=== PATIENT | female | born 1950 | race Caucasian/White ===

== ENCOUNTER 2019-07-18 01:29 | Inpatient (IN) | payer MEDICARE ==
[~2019-07-18] VITALS: Ht 152.4 cm; Wt 59.0 kg
--- NOTE | 2019-07-18 01:45 | NUR ---
GPS ADMISSION NOTE, RECEIVED PATIENT FROM [facility] / [place]. PATIENT ARRIVED ON THIS UNIT AT 0145 VIA STRETCHER WITH 2 EMT ESCORTS. PATIENT ADMITTED ON A 5150 HOLD FOR DTS AND GD. PER HOLD PATIENT REPORTS HAVING ANXIETY, PARANOIA, AND FEAR. PATIENT THINKS SHE IS BEING EXPOSED TO TOXIC FUMES AND IS BEING POISONED. PATIENTS STATES, " I HAVE NOT EATEN OR SLEPT IN DAYS ". PATIENT UNABLE TO VERBALIZE A PLAN FOR SELF CARE IF DISCHARGED FROM E.R. TODAY. THE 5150 WAS REVIEWED AND THE DOCUMENTATION IN THE 5150 HOLD APPEARS TO REFLECT THE PRESENTATION OF THE PATIENT. UPON FACE TO FACE ASSESSMENT PATIENT IS NOTED TO BEING DEPRESSED, ANXIOUS, DISHEVELED, DISORGANIZED, PARANOID, COOPERATIVE, AND NEEDS REDIRECTION. PATIENT IS CURRENTLY LYING IN BED AWAKE, HAS COMPLAINTS OF BILATERAL PAIN LEG AT 7 OUT OF 10 ON THE PAIN SCALE. PATIENT IS TAKING ORAL PAIN MEDICATION FOR THIS PAIN. PATIENT IS DISPLAYING NO S/S OF APPARENT DISTRESS. PATIENT BREATHING IS UNLABORED WITH EQUAL RISE AND FALL OF THE CHEST. PATIENT IS ALERT AND ORIENTATED X 1-2 ON ROOM AIR. PATIENT ASSISTED WITH TURING AND REPOSITIONING Q2HR AND PRN FOR COMFORT AND CIRCULATION. PATIENT HAS NO NEEDS AT THIS TIME. PATIENT DENIES SUICIDE IDEATIONS AND HOMICIDAL IDEATIONS AT THIS TIME. PATIENT REFUSED TO SIGNS ANY PAPER WORK AND IS CONFUSED AND IN TO MUCH PAIN TO DO SO. PATIENT ADVISED OF HER HOLD AND PATIENT RIGHTS BOOKLET GIVEN. PATIENT IS UNDER THE PSYCHIATRIC CARE OF DR. SANDY AND THE MEDICAL CARE OF DR ELIAS. PATIENT BELONGINGS WERE INVENTORIED AND CHECKED FOR CONTRABAND. ALL CONTRABAND REMOVED AND STORED IN PATIENT HALLWAY LOCKER. PATIENT ADVANCED DIRECTIVES PREFERENCE, IMMUNIZATIONS QUESTIONER, NECESSARY PAPERWORK COMPLETED. PATIENT COMPLETED SKIN ASSESSMENT. PATIENT ORIENTATED TO ROOM, FLOOR, AND STAFF WITH ALL QUESTIONS ANSWERED. PATIENT EDUCATED ON THE USE OF THE CALL LONG. PATIENT BED SIDE RAILS ARE UP X 2 FOR SAFETY. PATIENT BED IS LOCKED, LOW AND I WILL CONTINUE TO MONITOR THIS PATIENT Q 15 MIN WITH THE HELP OF STAFF TO MAINTAIN SAFETY.
[2019-07-18] MEDS ORDERED: MAG HYDROX/AL HYDROX/SIMETH 30 ML UDC PO PRN (03:00)
[2019-07-18] MEDS ORDERED: TEMAZEPAM 7.5 MG CAPSULE PO PRN (03:00)
[2019-07-18] MEDS ORDERED: MAGNESIUM HYDROXIDE 30 ML UDC PO PRN (03:00)
[2019-07-18] MEDS ORDERED: ACETAMINOPHEN 325 MG TABLET PO PRN (03:00)
[2019-07-18] MEDS ORDERED: LOSA50TA39 PO (03:28)
[2019-07-18] MEDS ORDERED: BLOOD SUGAR DIAGNOSTIC 1 EACH STRIP IN ONE (03:30)
[2019-07-18] MEDS ORDERED: ALPR1TAB2 PO (03:31)
[2019-07-18] MEDS ORDERED: VENL75TA4 PO (03:31)
[2019-07-18] MEDS ORDERED: PRAM0.258 PO (04:13)
[2019-07-18] MEDS ORDERED: DULO20CA19 PO (04:13)
[2019-07-18] MEDS ORDERED: HYDR-3972 PO (04:15)
[2019-07-18] MEDS ORDERED: DIPH50CA38 PO (04:18)
[2019-07-18] MEDS ORDERED: DIPH50CA37 PO (04:19)
[2019-07-18] MEDS: HYDROCODONE/APAP 5/325MG 1 EACH TABLET PO PRN ×3 (04:28→14:51)
--- NOTE | 2019-07-18 05:22 | NUR ---
Patient complain of leg pain 03/[address] diego and received the order for [place] 5/325 1 tab every 4 hrs and PRN for pain. and administered to the patient Reassess the pain after 30 mins pain was 2/10 all needs met. will continues to monitor the patient for safety and fall.
[2019-07-18 06:40] LABS: BASOPHILS # (AUTO) 0.1 /CMM (0.0-0.2); BASOPHILS % (AUTO) 1.3 % (0.0-2.0); EOSINOPHILS % (AUTO) 3.4 % (0.0-6.0); HEMATOCRIT 35 % (33-45); HEMOGLOBIN 11.1 g/dL (11.5-14.8); LYMPHOCYTES # (AUTO) 1.8 /CMM (0.8-4.8); LYMPHOCYTES % (AUTO) 33.7 % (20.0-44.0); MEAN CORPUSCULAR HGB CONC 32 g/dl (31.0-36.0); MEAN CORPUSCULAR VOLUME 73 fL (82-100); MONOCYTES # (AUTO) 0.5 /CMM (0.1-1.30); NEUTROPHILS # (AUTO) 2.8 /CMM (1.8-8.9); NEUTROPHILS % (AUTO) 51.6 % (43.0-81.0); PLATELET COUNT (AUTO) 218 /CMM (150-450); RED BLOOD CELL COUNT(AUTO) 4.77 MIL/uL (4.0-5.2); WHITE BLOOD COUNT (AUTO) 5.3 K/uL (4.3-11.0)
[2019-07-18 07:24] LABS: CALCIUM, SERUM 8.9 mg/dL (8.5-10.1); POTASSIUM 4.5 mmol/L (3.5-5.1)
[2019-07-18 08:00] VITALS: BP 144/72
--- NOTE | 2019-07-18 09:50 | NUR ---
PSYCHIATRIST CONTACT: SW contacted psychiatrist Dr. Boo ([phone]) and left a voicemail informing him pt is currently on a 5150 hold at [facility] and pt wishes to be transferred to [facility].
--- NOTE | 2019-07-18 09:53 | NUR ---
LATERAL TRANSFER: Pt is requesting she be transferred to [facility] Address: [address] [place] [address] under the treatment of psychiatrist Dr. Boo ([phone]). SW spoke with intake for a lateral transfer and SW will fax clinicals to for possible transfer. As of now per intake there are no beds available.
[2019-07-18] MEDS: LORAZEPAM 0.5 MG TABLET PO PRN ×2 (10:00→17:33)
--- NOTE | 2019-07-18 10:03 | NUR ---
RN NOTE: PT C/O BILAT LOWER LEG PAIN OF 8/10. REQUESTING NORCO PRN. PT C/O INCREASED ANXIETY AND RESTLESS LEG SYNDROME. MEDICATED WITH ATIVAN 0.5 MG PO PRN.
[2019-07-18] MEDS ORDERED: CHOL4PAC2 PO (10:08)
[2019-07-18] MEDS ORDERED: IPRA42SP (10:08)
[2019-07-18] MEDS ORDERED: POLY17PO4 PO (10:08)
[2019-07-18] MEDS ORDERED: LIDO30CR47 TP (10:08)
[2019-07-18] MEDS ORDERED: GABA-534 PO (10:08)
--- NOTE | 2019-07-18 10:47 | NUR ---
INITIAL DISCHARGE PLAN: Per pt she wishes to be transferred to [facility] Address: [address] [place] [address] for continued psychiatric treatment. KAYLEY may need SNF placement as she does not want to return home [address] [id number] . KAYLEY will help from a safe and proper discharge in collaboration with .
--- NOTE | 2019-07-18 10:53 | NUR ---
PSYCHIATRIST CONTACT: KAYLEY received a call from psychiatrist Dr. Boo ([phone]) stating he wishes for pt to be transferred to [facility] for continued psychiatric treatment. KAYLEY informed him that SW will fax clinicals once clinical notes are available for a possible lateral transfer contingent on bed availability. Dr. Boo agreed.
--- NOTE | 2019-07-18 11:03 | NUR ---
FAMILY CONTACT: SW contacted pts daughter Isabel [phone] and was unable to leave a voicemail as the phone kept ringing and had not voicemail option.
[2019-07-18] MEDS: risperiDONE 0.25 MG TABLET PO SCH ×2 (11:09→16:40)
--- NOTE | 2019-07-18 14:51 | NUR ---
RN NOTE: PT C/O BILATERAL LOWER LEG PAIN, 02/04. REQUESTING NORCO. NORCO GIVEN PO PRN
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
[2019-07-18 16:00] VITALS: BP 157/75
--- NOTE | 2019-07-18 16:30 | NUR ---
RN NOTE: DR. WOODARD ASSESSED PT THIS AM. NO NEW ORDERS. DR. WOODARD NOTIFIED AT 16:30 AND STATED WILL DO MEDICATION RECONCILIATION.
--- NOTE | 2019-07-18 17:34 | NUR ---
RN NOTE: PT C/O ANXIETY AND INDIGESTION. REQUESTING ATIVAN PO. MEDICATED WITH ATIVAN PO PRN AND MAALOX.
[2019-07-18] MEDS ORDERED: HYDROCODONE/APAP 5/325MG 1 EACH TABLET PO PRN (19:00)
[2019-07-18] MEDS ORDERED: GABAPENTIN 300 MG CAPSULE PO PRN (19:00)
[2019-07-18] MEDS: IPRATROPIUM NEB FS 0.5 MG/2.5 ML AMPUL.NEB NEB SCH (19:30)
--- NOTE | 2019-07-18 19:39 | NUR ---
GPS RN OPENING NOTES: PATIENT RESTING IN HER BED, EASILY AGITED ,FORGETFUL CONFUSED DISHELVED ,PARANOID DENIES SI/HI/AVH AT THIS TIME,ENCOURAGED FOR VERBALIZATION OF FEELINGS, SAFETY PRECAUTIONS IMPLEMENTED. INTERACT WITH ENGAGED, NEEDS FREQUENTLY REDIRECTIONS ,WILL CONTINUE TO MONITOR Q15MIN ROUNDS FOR SAFETY AND BEHAVIOR.
[2019-07-18 20:55] VITALS: BP 138/73
[2019-07-18] MEDS: PRAMIPEXOLE DI-HCL 0.25 MG TABLET PO SCH (21:39)
[2019-07-18] MEDS: BENZTROPINE MESYLATE (1 MG) 1 MG TABLET PO SCH (21:39)
--- NOTE | 2019-07-19 06:11 | NUR ---
RN NOTES: PLACED CALLED TO [facility] SPOKE WITH LIVIA CAVANAUGH # [phone] REGARDING ABOUT ADMISSION
--- NOTE | 2019-07-19 06:48 | NUR ---
GPS RN CLOSING NOTE: PATIENT IN BED ASLEEP,COMFORTABLY, NO ACUTE DISTRESS NOTED. DENIES PAIN OR DISCOMFORT. NO AGITATION NOTED. NO BEHAVIOR PROBLEMS NOTED ,DENIES SI/HI/AVH AT THIS TIME. SAFETY PRECAUTIONS IMPLEMENTED.ALL NEEDS ATTENDED AND ANTICIPATED, ENCOURGED FOR VERBALIZED ANY FEELING ,BED ALARM ON AND IN LOCKED POSITION. WILL CONTINUE TO MONITOR FOR PT'S SAFETY.
[2019-07-19 08:00] VITALS: BP 141/82
[2019-07-19] MEDS: POLYETHYLENE GLYCOL 3350 17 GM POWD.PACK PO SCH ×2 (08:13→08:51)
[2019-07-19] MEDS: risperiDONE 0.25 MG TABLET PO SCH ×2 (08:13→17:12)
[2019-07-19] MEDS: LOSARTAN POTASSIUM 50 MG TABLET PO SCH (08:13)
[2019-07-19] MEDS: VENLAFAXINE XR 75 MG CAP.SR.24H PO SCH (08:13)
[2019-07-19] MEDS: IPRATROPIUM NEB FS 0.5 MG/2.5 ML AMPUL.NEB NEB SCH ×2 (08:30→19:40)
[2019-07-19] MEDS ORDERED: CHOLESTYRAMINE PO SCH (09:00)
[2019-07-19] MEDS ORDERED: SUCROSE PO SCH (09:00)
--- NOTE | 2019-07-19 10:10 | NUR ---
GPS RN OPENING NOTE RECEIVED PT LYING IN BED. PATIENT IS UNSTEADY ON HER FEET AND NEEDS TO USE WALKER TO AMBULATE. INDEPENDENT WITH ADLS. PERFORMED AM CARE. PATIENT DENIES PAIN THIS MORNING. EDUCATED ON PRN MEDICATIONS FOR PAIN R/T HER FIBROMYALGIA. NO ACUTE DISTRESS NOTED. PT DENIES SI/HI/AH/VH AT PRESENT TIME. WILL CONT TO MONITOR PT Q15 FOR MOOD, SAFETY AND BEHAVIOR.
[2019-07-19] MEDS: HYDROCODONE/APAP 5/325MG 1 EACH TABLET PO PRN ×2 (13:09→21:29)
[2019-07-19 16:00] VITALS: BP 108/57
[2019-07-19] MEDS: PRAMIPEXOLE DI-HCL 0.25 MG TABLET PO SCH (21:03)
[2019-07-19] MEDS: BENZTROPINE MESYLATE (1 MG) 1 MG TABLET PO SCH (21:04)
[2019-07-19 21:14] VITALS: BP 126/75
[2019-07-19 21:27] VITALS: BP 136/73
--- NOTE | 2019-07-19 21:30 | NUR ---
GPS RN NOTES: C/O OF FEET PAIN PT C/O OF BILATERAL FEET PAIN. PT STATED, "CAN I HAVE MEDICATION TO HELP WITH MY FEET PAIN?" CHECKED VITALS WNL. NO S/S OF RESP DISTRESS. BREATHING EVEN AND UNLABORED.. OFFERED NARCO 1TAB PO PRN ORDERED. PT AGREED AND TOLERATED MEDICATION WELL. CONTINUE TO MONITOR.
[2019-07-20 08:00] VITALS: BP 141/69
[2019-07-20] MEDS: risperiDONE 0.25 MG TABLET PO SCH ×2 (08:02→16:09)
[2019-07-20] MEDS: POLYETHYLENE GLYCOL 3350 17 GM POWD.PACK PO SCH (08:02)
[2019-07-20] MEDS: VENLAFAXINE XR 75 MG CAP.SR.24H PO SCH (08:02)
[2019-07-20] MEDS: LOSARTAN POTASSIUM 50 MG TABLET PO SCH (08:06)
--- NOTE | 2019-07-20 09:00 | NUR ---
RN NOTE - RECEIVED PT LYING IN BED. NO ACUTE DISTRESS NOTED, VSS, AFEBRILE. PT A+OX3. ABLE TO MAKE NEEDS KNOWN. PT IS ISOLATIVE AND WITHDRAWN. FLAT AFFECT. PT DENIES SI/HI/AH/VH AT PRESENT TIME. PT IS COMPLIANT WITH MEDICATION ADMINISTRATION AND PLAN OF CARE. WILL CONT TO MONITOR PT PER GPS PROTOCOL.
[2019-07-20] MEDS: IPRATROPIUM NEB FS 0.5 MG/2.5 ML AMPUL.NEB NEB SCH ×2 (09:36→19:30)
[2019-07-20] MEDS: HYDROCODONE/APAP 5/325MG 1 EACH TABLET PO PRN ×2 (13:35→22:06)
--- NOTE | 2019-07-20 13:36 | NUR ---
RN NOTE: PT C/O 01/04 LEFT LOWER LEG PAIN. REQUESTING NORCO PRN. MEDICATED WITH NORCO 5MG/325MG PO PRN FOR PAIN.
[2019-07-20 16:15] VITALS: BP 127/65
[2019-07-20 20:16] VITALS: BP 148/75
[2019-07-20] MEDS: BENZTROPINE MESYLATE (1 MG) 1 MG TABLET PO SCH (21:06)
[2019-07-20] MEDS: PRAMIPEXOLE DI-HCL 0.25 MG TABLET PO SCH (21:06)
[2019-07-21] MEDS: IPRATROPIUM NEB FS 0.5 MG/2.5 ML AMPUL.NEB NEB SCH (07:30)
[2019-07-21 08:00] VITALS: BP 139/71
[2019-07-21 09:01] VITALS: BP 139/71
[2019-07-21] MEDS: VENLAFAXINE XR 75 MG CAP.SR.24H PO SCH (09:01)
[2019-07-21] MEDS: LOSARTAN POTASSIUM 50 MG TABLET PO SCH (09:01)
[2019-07-21] MEDS: POLYETHYLENE GLYCOL 3350 17 GM POWD.PACK PO SCH (09:01)
[2019-07-21] MEDS: risperiDONE 0.25 MG TABLET PO SCH (09:01)
--- NOTE | 2019-07-21 11:36 | NUR ---
REFERRAL: KAYLEY faxed lateral transfer referral to [facility] Address: [address] [place], [place] [address] for review.
--- NOTE | 2019-07-21 12:55 | NUR ---
LATERAL TRANSFER: SW received a call from Verónica metal control coordinator at [facility] Address: [address] [place] [address] Boo has accepted pt and can be transferred on this present day.
--- NOTE | 2019-07-21 13:13 | NUR ---
DISCHARGE NOTE: Pt is being laterally transferred via ambulance between 2:00-3:00pm (arranged by [facility]) to [facility] Address: [address] [place] [address] . Pt will be under the psychiatric treatment of Dr. Meng Boo. Pts mood is depressed/dysphoric with angry affect. Pt has persecutory delusions and is angry at her roommate for not talking to her.
--- NOTE | 2019-07-21 14:06 | NUR ---
RN-CO: Dr Santos seen and examined the patient. She ordered a lateral transfer to [facility] in [address] [facility] , [place] [address] tel [phone]. Dr Stevenson (internis) made aware and ordered to continue her medications. Patient is calm and cooperative while she is here, denied pain and discomforts. She stated that she is not feeling hopeless because she has a grand daughter to take care of. More so denies suicidal and homicidal ideation. She stated that she doesn't have auditory and visual hallucination. Report was given to the RN in [facility]. All belongings and valuables will be given back to the patient. Daughter Brennon Colin made aware. [phone]. [facility] will be picking up the patient. Addendum: 07/21/19 at 1445 by TAHIRA ALVAREZ RN RN-CO: HOWEVER, patient is guarded and easily irritated./
--- NOTE | 2019-07-21 15:56 | NUR ---
RN-CO: Ambulance picked up the patient with all her valuables given and approved by her.
== END 2019-07-21 15:45 | DRG 885 ==
LOC: GPS 01:29
PROVIDERS: ADMIT Psychiatry & Neurology Psychosomatic Medicine; ATTEND Internal Medicine
DX: F31.4 Bipolar disorder, current episode depressed, severe, without psychotic features (principal); F41.9 Anxiety disorder, unspecified; F03.90 Unspecified dementia, unspecified severity, without behavioral disturbance, psychotic disturbance, mood disturbance, and anxiety; F09 Unspecified mental disorder due to known physiological condition; F19.90 Other psychoactive substance use, unspecified, uncomplicated; F43.10 Post-traumatic stress disorder, unspecified; G62.9 Polyneuropathy, unspecified; I10 Essential (primary) hypertension; J44.9 Chronic obstructive pulmonary disease, unspecified; Z91.410 Personal history of adult physical and sexual abuse
CPT/HCPCS: 36415; 80048-TC; 80061-TC; 82962-TC; 85025-TC; 87081-TC; 97116-TC; 97530-TC